=== PATIENT | male | born 1995 | race Caucasian/White ===

== ENCOUNTER 2021-10-20 09:18 | Emergency (ER) | payer SELFPAY ==
[2021-10-20 09:22] VITALS: BP 116/67; PULSE 60; RESP 16; TEMP 36.2; O2SAT 100
--- NOTE | 2021-10-20 09:45 | ED_ITS ---
HPI - Dental/Oral General Chief complaint: Dental/Oral <Winter Turner APRN - Last Filed: 10/20/21 10:21> Stated complaint: toothache <Winter Turner WET PROCESS MILLER - Last Filed: 10/20/21 10:21> Time Seen by Provider: 10/20/21 09:29 <Winter Turner WET PROCESS MILLER - Last Filed: 10/20/21 10:21> Source: patient <Winter Turner WET PROCESS MILLER - Last Filed: 10/20/21 10:21> Mode of arrival: ambulatory <Winter Turner WET PROCESS MILLER - Last Filed: 10/20/21 10:21> Limitations: no limitations <Winter Turner APRN - Last Filed: 10/20/21 10:21> History of Present Illness MD Complaint: tooth pain <Winter Turner WET PROCESS MILLER - Last Filed: 10/20/21 10:21> Onset (ago): day(s) (started yesterday) <Winter Turner WET PROCESS MILLER - Last Filed: 10/20/21 10:21> Related Data Allergies/adverse reactions: Allergies Allergy/AdvReac Type Severity Reaction Status Date / Time No Known Allergies Allergy Unknown Verified 10/20/21 09:26 <Winter Turner WET PROCESS MILLER - Last Filed: 10/20/21 10:21> Review of Systems Constitutional: Constitutional: Denies chills, Denies fatigue, Denies fever(s) and Denies weakness <Winter Turner APRN - Last Filed: 10/20/21 10:21> ENT: Reports as per HPI <Winter Turner WET PROCESS MILLER Last Filed: 10/20/21 10:21> Cardiovascular: Cardiovascular: Reports no additional cardiovascular complaints <Winter Turner WET PROCESS MILLER - Last Filed: 10/20/21 10:21> Respiratory: Respiratory: Reports no additional respiratory complaints <Winter Turner WET PROCESS MILLER - Last Filed: 10/20/21 10:21> Psychiatric: Psychiatric: Reports no additional psychiatric complaints <Winter Turner WET PROCESS MILLER - Last Filed: 10/20/21 10:21> PMFSH Social History Social History: Social History Smoking status: Never smoker Alcohol intake: never <Winter Turner WET PROCESS MILLER - Last Filed: 10/20/21 10:21> Exam Const: General: no acute distress <Winter Turner WET PROCESS MILLER - Last Filed: 10/20/21 10:21> Orientation/consciousness: patient oriented x3 <Winter Turner WET PROCESS MILLER - Last Filed: 10/20/21 10:21> HENMT: Ears: external ears normal and TM's normal bilaterally <Winter Turner, WET PROCESS MILLER - Last Filed: 10/20/21 10:21> Teeth and gingiva: abnormal tooth and associated gingiva 17,18,19 tender and other (cracked tooth 17) <Winter Turner WET PROCESS MILLER - Last Filed: 10/20/21 10:21> Eyes: Pupils: Equal, round and reactive pupils present <Winter Turner WET PROCESS MILLER - Last Filed: 10/20/21 10:21> Neck: Neck: normal visual inspection and no lymphadenopathy <Winter Turner, WET PROCESS MILLER - Last Filed: 10/20/21 10:21> Resp: Effort & Inspection: normal respiratory effort <Winter Turner, WET PROCESS MILLER - Last Filed: 10/20/21 10:21> Auscultation: clear to auscultation bilaterally <Winter Turner, WET PROCESS MILLER - Last Filed: 10/20/21 10:21> Cardio: Rate: regular rate <Winter Turner WET PROCESS MILLER - Last Filed: 10/20/21 10:21> Rhythm: regular rhythm <Winter Turner WET PROCESS MILLER - Last Filed: 10/20/21 10:21> Neuro: General: patient oriented x3 <Winter Turner WET PROCESS MILLER - Last Filed: 10/20/21 10:21> Psych: Mental Status: mental status grossly normal <Winter Turner WET PROCESS MILLER - Last Filed: 10/20/21 10:21> Course Course Emergency Course: Plan one tab norco in ER. Discharge home with penicillin and ibuprofen. <Winter Turner WET PROCESS MILLER - Last Filed: 10/20/21 10:21> STATISTICAL SECRETARY/PA Physician Supervision Dr. Ej Bernardo <Winter Turner, WET PROCESS MILLER - Last Filed: 10/20/21 10:21> I did not see
--- NOTE | 2021-10-20 09:45 | ED.DENTAL ---
HPI - Dental/Oral General Chief complaint: Dental/Oral <Winter Turner APRN - Last Filed: 10/20/21 10:21> Stated complaint: toothache <Winter Turner [employer] - Last Filed: 10/20/21 10:21> Time Seen by Provider: 10/20/21 09:29 <Winter Turner [employer] - Last Filed: 10/20/21 10:21> Source: patient <Winter Turner [employer] ADVIS[employer] - Last Filed: 10/20/21 10:21> Mode of arrival: ambulatory <Winter Turner [employer] - Last Filed: 10/20/21 10:21> Limitations: no limitations <Winter Turner APRN - Last Filed: 10/20/21 10:21> History of Present Illness MD Complaint: tooth pain <Winter Turner [employer] - Last Filed: 10/20/21 10:21> Onset (ago): day(s) (started yesterday) <Winter Turner [employer] - Last Filed: 10/20/21 10:21> Related Data Allergies/adverse reactions: Allergies Allergy/AdvReac Type Severity Reaction Status Date / Time No Known Allergies Allergy Unknown Verified 10/20/21 09:26 <Winter Turner [employer] - Last Filed: 10/20/21 10:21> Review of Systems Constitutional: Constitutional: Denies chills, Denies fatigue, Denies fever(s) and Denies weakness <Winter Turner APRN - Last Filed: 10/20/21 10:21> ENT: Reports as per HPI <Winter Turner [employer] Last Filed: 10/20/21 10:21> Cardiovascular: Cardiovascular: Reports no additional cardiovascular complaints <Winter Turner [employer] - Last Filed: 10/20/21 10:21> Respiratory: Respiratory: Reports no additional respiratory complaints <Winter Turner [employer] - Last Filed: 10/20/21 10:21> Psychiatric: Psychiatric: Reports no additional psychiatric complaints <Winter Turner [employer] - Last Filed: 10/20/21 10:21> PMFSH Social History Social History: Social History Smoking status: Never smoker Alcohol intake: never <Winter Turner [employer] - Last Filed: 10/20/21 10:21> Exam Const: General: no acute distress <Winter Turner [employer] ADVIS[employer] - Last Filed: 10/20/21 10:21> Orientation/consciousness: patient oriented x3 <Winter Turner [employer] - Last Filed: 10/20/21 10:21> HENMT: Ears: external ears normal and TM's normal bilaterally <Winter Turner, [employer] ADVIS[employer] - Last Filed: 10/20/21 10:21> Teeth and gingiva: abnormal tooth and associated gingiva 17,18,19 tender and other (cracked tooth 17) <Winter Turner [employer] - Last Filed: 10/20/21 10:21> Eyes: Pupils: Equal, round and reactive pupils present <Winter Turner [employer]OMOTIVE [employer] ADVIS[employer] - Last Filed: 10/20/21 10:21> Neck: Neck: normal visual inspection and no lymphadenopathy <Winter Turner, [employer] - Last Filed: 10/20/21 10:21> Resp: Effort & Inspection: normal respiratory effort <Winter Turner, [employer]OR - Last Filed: 10/20/21 10:21> Auscultation: clear to auscultation bilaterally <Winter Turner, [employer] ADVISOR - Last Filed: 10/20/21 10:21> Cardio: Rate: regular rate <Winter Turner [employer] - Last Filed: 10/20/21 10:21> Rhythm: regular rhythm <Winter Turner [employer] ADVIS[employer] - Last Filed: 10/20/21 10:21> Neuro: General: patient oriented x3 <Winter Turner [employer] - Last Filed: 10/20/21 10:21> Psych: Mental Status: mental status grossly normal <Winter Turner [employer] - Last Filed: 10/20/21 10:21> Course Course Emergency Course: Plan one tab norco in ER. Discharge home with penicillin and ibuprofen. <Winter Turner [employer] - Last Filed: 10/20/21 10:21> ESCORT PATIENTS/PA Physician Supervision Dr. Ej Bernardo <Winter Turner APRN - Last Filed: 10/20/21 10:21> I did not see this patient nor was the care plan discussed with me. I was available for evaluation and consultation, I agree with the documentation <Ej Bernardo MD - Last Filed: 10/20/21 16:17> Vital Signs Vital signs: Vital Signs Temperature 36.2 C L 10/20/21 09:22 Pulse Rate 60 10/20/21 09:22 Respiratory Rate 16 10/20/21 09:22 Blood Pressure 116/67 10/20/21 09:22 Pulse Oximetry 100 10/20/21 09:22 Temperature 36.2 C L 10/20/21 09:22 Pulse Rate 60 10/20/21 09:22 Respiratory Rate 1
[2021-10-20] MEDS: HYDROcodone/acetaminophen (*CRX) 5-325 MG TABLET 1 TAB PO (10:11)
== END 2021-10-20 10:15 | disposition home or self-care (01) ==
PROVIDERS: Emergency Provider Nurse Practitioner Family
DX: K02.9 Dental caries, unspecified (principal)
CPT/HCPCS: 99283; A9270